=== PATIENT | male | born 1995 | race African-American/Black ===

== ENCOUNTER 2025-01-25 21:13 | Inpatient (IN) | payer OTHER ==
[~2025-01-25] VITALS: Ht 175.3 cm; Wt 82.5 kg
[2025-01-26 00:10] LABS: PLATELET COUNT (AUTO) 228 K/uL (150-450); RED BLOOD CELL COUNT(AUTO) 4.72 MIL/uL (4.50-5.90); RED CELL DISTRIBUTION WIDTH 13.2 % (11.5-14.5); WHITE BLOOD COUNT (AUTO) 9.0 K/uL (4.5-11.0)
[2025-01-26 00:19] LABS: CALCIUM, TOTAL 8.2 mg/dL (8.8-10.5); CREATININE 1.44 mg/dL (0.60-1.30); GLOMERULAR FILTR. RATE CALC > 60 mL/min (>60); GLUCOSE,RANDOM 114 mg/dL (70-110); SODIUM SERUM 137 mmol/L (136-145); UREA NITROGEN, BLOOD 18 mg/dL (7-18)
[2025-01-26 00:25] LABS: ASPARTATE AMINOTRANSFERASE 20 U/L (15-37); TOTAL PROTEIN, SERUM 7.3 g/dL (6.4-8.2)
[2025-01-26 00:53] LABS: ALCOHOL, BLOOD (SERUM) < 3 mg/dL (0-10)
[2025-01-26 02:34] LABS: PH,URINE DRUG SCREEN 5.5 (5.0-8.0)
[2025-01-26 02:41] LABS: ALCOHOL, URINE DRUG SCREEN NEGATIVE (NEGATIVE); AMPHET/METH SCREEN,URINE NEGATIVE (NEGATIVE); BARBITURATE SCREEN, URINE NEGATIVE (NEGATIVE); CANNABINOID SCREEN,URINE NEGATIVE (NEGATIVE); COCAINE SCREEN,URINE NEGATIVE (NEGATIVE); METHADONE SCREEN, URINE NEGATIVE (NEGATIVE)
[2025-01-26] MEDS ORDERED: ACETAMINOPHEN 325 MG TABLET PO PRN (03:45)
[2025-01-26] MEDS ORDERED: ONDANSETRON HCL 4 MG/2 ML VIAL IVP PRN (03:45)
[2025-01-26] MEDS: HEPARIN SODIUM,PORCINE 5,000 UNITS/ML VIAL SQ SCH (08:00)
[2025-01-26 09:02] VITALS: BP 120/79; PULSE 62; RESP 18; TEMP 98.2; O2SAT 98
[2025-01-26 12:00] VITALS: BP 116/70; PULSE 60; RESP 17; TEMP 98; O2SAT 96
[2025-01-26] MEDS: LevETIRAcetam 250 MG in DEXTROSE 5%-WATER 100 ML IV SCH (13:36)
[2025-01-26 15:38] VITALS: BP 119/74; PULSE 61; RESP 18; TEMP 98.6; O2SAT 98
[2025-01-26 20:22] VITALS: BP 114/79; PULSE 60; RESP 18; TEMP 98.4; O2SAT 96
[2025-01-27 00:15] VITALS: BP 116/81; PULSE 56; RESP 16; TEMP 98.4; O2SAT 98
[2025-01-27] MEDS ORDERED: BICT1TAB PO (01:35)
[2025-01-27] MEDS: RINGERS SOLUTION,LACTATED 1,000 ML IV SCH (02:06)
[2025-01-27 04:07] LABS: BASOPHILS %-(REF. LAB) 1 % (Not Estab.); BASOPHILS ABSOLUTE(REF. LAB) 0.0 x10E3/uL (0.0-0.2); EOSINOPHILS %-(REF. LAB) 1 % (Not Estab.); EOSINOPHILS ABSOLUTE(REF. LAB) 0.0 x10E3/uL (0.0-0.4); IM GRANULOCYT ABSOL-(REF. LAB) 0.0 x10E3/uL (0.0-0.1); IMMATR GRANULOCYT %-(REF. LAB) 0 % (Not Estab.); LYMPHOCYTES %-(REF. LAB) 45 % (Not Estab.); MEAN CELL HEMOGLOB-(REF. LAB) 30.1 pg (26.6-33.0); MEAN CELL HGB CONC-(REF. LAB) 33.1 g/dL (31.5-35.7); MEAN CELL VOLUME-(REF. LAB) 91 fL (79-97); MONOCYTES %-(REF. LAB) 8 % (Not Estab.); MONOCYTES ABSOLUTE(REF. LAB) 0.6 x10E3/uL (0.1-0.9); NEUTOPHILS %-(REF. LAB) 45 % (Not Estab.); REDC DISTRIB. WIDTH-(REF. LAB) 13.1 % (11.6-15.4)
[2025-01-27 05:53] VITALS: BP 111/63; PULSE 53; RESP 16; TEMP 97.9; O2SAT 99
[2025-01-27 06:07] LABS: PLATELET COUNT (AUTO) 223 K/uL (150-450); RED BLOOD CELL COUNT(AUTO) 4.95 MIL/uL (4.50-5.90); RED CELL DISTRIBUTION WIDTH 13.1 % (11.5-14.5); WHITE BLOOD COUNT (AUTO) 6.9 K/uL (4.5-11.0)
[2025-01-27 06:27] LABS: CREATINE KINASE, TOTAL ONLY 133.0 U/L (39-308)
[2025-01-27 06:30] LABS: CALCIUM, TOTAL 8.9 mg/dL (8.8-10.5); CREATININE 1.10 mg/dL (0.60-1.30); GLOMERULAR FILTR. RATE CALC > 60 mL/min (>60); GLUCOSE,RANDOM 94 mg/dL (70-110); SODIUM SERUM 139 mmol/L (136-145); UREA NITROGEN, BLOOD 14 mg/dL (7-18)
[2025-01-27 07:32] VITALS: BP 123/76; PULSE 50; RESP 18; TEMP 98; O2SAT 98
[2025-01-27] MEDS: BICTEGRAV/EMTRICIT/TENOFOV ALA 50-200-25 MG TABLET PO SCH (08:37)
[2025-01-27 10:07] LABS: ABSOLUTE CD4 COUNT 1180 /uL (359-1519); ABSOLUTE CD8 SUPPRESSOR 1646 /uL (109-897); CD4:CD8 RATIO 0.72 (0.92-3.72); PERCENT CD4 POS.LYMPH. 34.7 % (30.8-58.5); PERCENT CD8 POS. LYMPH. 48.4 % (12.0-35.5)
[2025-01-27 11:53] VITALS: BP 122/78; PULSE 54; RESP 17; TEMP 98.2; O2SAT 97
[2025-01-27] MEDS: MAGNESIUM SULFATE 2 GM/WATER 50 ML IV ONE (14:17)
[2025-01-27 17:13] VITALS: BP 122/84; PULSE 97; RESP 18; TEMP 98.2; O2SAT 98
[2025-01-27 21:10] VITALS: BP 134/78; PULSE 62; RESP 18; TEMP 98.8; O2SAT 98
[2025-01-28 00:11] VITALS: BP 109/80; PULSE 69; RESP 18; TEMP 98.2; O2SAT 97
[2025-01-28 04:14] VITALS: BP 116/61; PULSE 53; RESP 18; TEMP 97.9; O2SAT 97
[2025-01-28 07:30] LABS: PLATELET COUNT (AUTO) 240 K/uL (150-450); RED BLOOD CELL COUNT(AUTO) 5.19 MIL/uL (4.50-5.90); RED CELL DISTRIBUTION WIDTH 13.1 % (11.5-14.5); WHITE BLOOD COUNT (AUTO) 6.0 K/uL (4.5-11.0)
[2025-01-28 07:42] LABS: CALCIUM, TOTAL 9.3 mg/dL (8.8-10.5); CREATININE 1.27 mg/dL (0.60-1.30); GLOMERULAR FILTR. RATE CALC > 60 mL/min (>60); GLUCOSE,RANDOM 93 mg/dL (70-110); SODIUM SERUM 138 mmol/L (136-145); UREA NITROGEN, BLOOD 11 mg/dL (7-18)
[2025-01-28 08:37] VITALS: BP 108/77; PULSE 73; RESP 17; TEMP 98.2; O2SAT 99
[2025-01-28 12:28] VITALS: BP 109/70; PULSE 61; RESP 19; TEMP 98.4; O2SAT 99
[2025-01-28 16:11] VITALS: BP 107/74; PULSE 63; RESP 18; TEMP 98.2; O2SAT 98
== END 2025-01-28 17:05 | DRG 100 ==
LOC: EMS 21:13 → EDH 01-26 03:42 → EDBEDREQ 01-26 03:53 → 5S 01-26 08:38
PROVIDERS: ADMIT Internal Medicine; ATTEND Internal Medicine
DX: G40.909 Epilepsy, unspecified, not intractable, without status epilepticus (principal); N17.0 Acute kidney failure with tubular necrosis; R79.89 Other specified abnormal findings of blood chemistry; E83.42 Hypomagnesemia; S00.83XA Contusion of other part of head, initial encounter; W18.39XA Other fall on same level, initial encounter; Y93.89 Activity, other specified; Y92.148 Other place in prison as the place of occurrence of the external cause; Y99.8 Other external cause status
CPT/HCPCS: 70450; 70486; 71045; 72125; 80048; 80076; 80307; 82550; 83735; 85025; 86360; 99285; G0480; J0712; J1644; J3475; J7060; J7120; 36415-L1; 36415-TC